=== PATIENT | male | born 1970 | race Caucasian/White ===

== ENCOUNTER → 2017-11-01 | Outpatient (CLI) | payer OTHER | LOC: CIMAGING 16:49 | PROVIDERS: ATTEND Internal Medicine | DX: I51.7 Cardiomegaly (principal) | CPT/HCPCS: 71046-PO ==

== ENCOUNTER → 2018-04-08 | Outpatient (CLI) | payer OTHER | LOC: CIMAGING 15:40 | PROVIDERS: ATTEND Internal Medicine | DX: M77.51 Other enthesopathy of right foot and ankle (principal); M77.32 Calcaneal spur, left foot | CPT/HCPCS: 73630-PO ==

== ENCOUNTER 2018-07-02 08:36 | Emergency (ER) | payer OTHER ==
[2018-07-02] MEDS ORDERED: KETOROLAC 15 MG/1 ML SDV IVP ONE (09:16)
[2018-07-02] MEDS ORDERED: IBUPROFEN 600 MG TAB PO ONE (09:25)
--- NOTE | 2018-07-02 10:15 | EDPHY ---
H & P Time Seen by Provider: 07/02/18 08:58 HPI/ROS: This patient is concerned that he may have a blood clot in his right ankle. 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 Because of that relatively sedentary work is concerned that he may have a blood clot. He explains that he 1st noticed pain in the calf that then became very focal in the ankle over the past 24 hr primarily in the lateral region just posterior and inferior to the lateral malleolus. He states the pain is 8/10 intensity. He has a long history of gouty flares usually to the right great toe and currently has no toe pain associated with this. He thinks he may have had a DVT in 2002 when he flew to [facility] though he does not recall any details other than being hospitalized for 3 days after leg swelling. While he is placed on medications for 3 days he was instructed to call his [place] physician for any further treatment plans thereafter and did not go on blood thinners thereafter. ROS: Constitutional: No fevers or chills HEENT: No complaints. No URI symptoms Neuro: He reports 2 days of vertigo on Sunday that is since resolved. Pulmonary: No cough shortness of breath. No pleuritic pain Cardiovascular: No heart palpitations or chest pain. No lower extremity swelling. GI: No complaints Integumentary: No skin rash to the lower extremities 7 point review of symptoms is performed and otherwise negative with exception of pertinent positives and negatives listed in HPI and ROS Smoking Status: Former smoker Physical Exam: Physical Exam Vital signs are normal. General: No acute distress HEENT: Atraumatic. Eyes: Pupils equal and react to light. Extraocular motions are intact. Lungs: No respiratory distress. Cardiac: Brisk capillary refill is intact throughout. Pulses are 2+ and symmetric in the affected extremity. Skin: No rash or pallor. Right lower extremity: No calf swelling or tenderness currently. Patient has tenderness inferior and posterior to the lateral malleolus more than the medial malleolus which reproduces his pain. There is no overlying skin change. No tenderness to the malleoli themselves. No foot swelling or tenderness. Neuro: Alert and oriented x3 with no sensorimotor deficits to affected extremity. Initial differential diagnosis: Gouty flare to ankle, septic arthritis, bony lesion, doubt DVT, ankle strain, ankle sprain Constitutional: Initial Vital Signs Temperature (C) 36.6 C 07/02/18 08:41 Heart Rate 94 07/02/18 08:41 O2 Sat (%) 98 07/02/18 08:41 O2 Delivery Mode Room Air Allergies/Adverse Reactions: cyclobenzaprine HCl [From Flexeril] Allergy (Verified 07/02/18 08:57) Home Medications: Medication Instructions Recorded Aspirin 81mg (*) 07/02/18 Colchicine (*) PRN 07/02/18 Prednisone PRN 07/02/18 ULORIC 07/02/18 MDM/Departure - MDM Medications Given: Discontinued Medications Ibuprofen (Motrin) 600 mg PO EDNOW ONE Stop: 07/02/18 09:26 Last Admin: 07/02/18 10:16 Dose: Not Given Ketorolac Tromethamine (Toradol) 15 mg IVP EDNOW ONE Stop: 07/02/18 09:17 Last Admin: 07/02/18 10:17 Dose: Not Given ED Course/Re-evaluation: Patient is offered a workup that would include IV, lab work and imaging to workup differential diagnosis of ankle pain. However the patient declines all workup except a D-dimer explain that he only wants to rule out blood clot in then continue any further necessary workup as an outpatient with primary care physician to avoid unnecessary charges. He understands the risk of potential missed diagnosis and accepts these risks. He also declines any analgesics that were offered while here. Studies: D-dimer is normal Discussion: Patient with ankle swelling - Depart Disposition: Home, Routine, Self-Care Clinical Impression: Acute ankle pain Qualifiers: Laterality: right Qualified Code(s): M25.571 - Pain in right ankle and joints of right foot Gout attack Qualifiers: Gout site: ankle Gout etiology: unspecified cause Laterality: right Qualified Code(s): M10.9 - Gout, unspecified Condition: Good Instructions: Low Purine Diet (ED), Gout (ED) Additional Instructions: Diagnosis: Acute ankle pain due to gouty flare You D-dimer test is normal today effectively ruling out blood clot Plan: Restart her colchicine Tylenol and ibuprofen in addition if needed Follow up with primary care physician Decrease your protein intake and increase her fluid intake Hold off on alcohol until symptoms resolve Return for any significant worsening despite treatment plan Referrals: Nav Saucedo MD [Primary Care Provider] - As per Instructions
[2018-07-02 10:22] VITALS: BP 149/92
== END 2018-07-02 10:32 | disposition home or self-care (01) ==
LOC: CED 08:36
DX: M10.9 Gout, unspecified (principal); M25.571 Pain in right ankle and joints of right foot; Z87.891 Personal history of nicotine dependence
CPT/HCPCS: 99282-ER